=== PATIENT | male | born 1960 | race Caucasian/White ===

== ENCOUNTER 2017-10-30 15:50 | Outpatient (CLI) | payer OTHER ==
[2017-10-30 16:26] LABS: #Eosinphils 0.1 thou/uL (0.0-0.7); #Lymphocytes 1.1 thou/uL (1.20-3.40); #Monocytes 0.5 thou/uL (0.11-0.59); #Neutrophils 3.9 thou/uL (1.40-6.50); %Basophils 0.6 % (0.0-1.0); %Lymphocytes 19.3 % (21.0-51.0); %Monocytes 8.6 % (0.0-10.0); %Neutrophils 70.5 % (42.0-75.0); Hemoglobin 13.8 g/dL (14.0-18.0); Mean Corpuscular HGB CONC 34.6 g/dL (32.0-36.0); Mean Corpuscular Hemoglobin 34.2 pg (27.0-31.0); Mean Corpuscular Volume 98.8 fl (80.0-94.0); Mean Platelet Volume 6.9 fL (7.4-10.4); Platelet Count 185 thou/uL (130-400); RBC Distribution Width 11.8 % (11.5-14.5); Red Blood Cell (RBC) Count 4.02 mill/uL (4.70-6.10); White Blood Cell (WBC) Count 5.6 thou/uL (4.8-10.8)
== END 2017-10-30 15:51 | disposition home or self-care (01) ==
LOC: LABBT 15:50
PROVIDERS: ATTEND Orthopaedic Surgery Hand Surgery
DX: Z01.812 Encounter for preprocedural laboratory examination (principal); S62.635A Displaced fracture of distal phalanx of left ring finger, initial encounter for closed fracture; S62.637A Displaced fracture of distal phalanx of left little finger, initial encounter for closed fracture
CPT/HCPCS: 85025

== ENCOUNTER 2017-10-31 12:36 | Day surgery (SDC) | payer OTHER ==
[2017-10-30 15:49] VITALS: BMI 23.5
[2017-10-31] MEDS ORDERED: Clindamycin/D5W 600 mg/50 ml Premix Bag ONE (13:25)
[2017-10-31] MEDS ORDERED: Lidocaine 1% PF 5 ML VIAL ONE (14:06)
[2017-10-31] MEDS ORDERED: PROPOFOL 200 MG/20 ML VIAL ONE (14:06)
[2017-10-31] MEDS ORDERED: Ondansetron HCl/PF 4 MG/2 ML Vial ONE (14:06)
[2017-10-31] MEDS ORDERED: Midazolam HCl 2 mg/2 ml Vial ONE ×2 (14:31→16:16)
[2017-10-31] MEDS ORDERED: Fentanyl 100 MCG/2 ML VIAL ONE ×2 (15:21→16:16)
[2017-10-31] MEDS ORDERED: Sodium Chloride 0.9% 10 ML ONE (16:19)
[2017-10-31] MEDS ORDERED: Bupivacaine PF 0.5% 30 ML VIAL ONE (16:19)
[2017-10-31] MEDS ORDERED: Bacitracin Zinc Ointment 30 gm TUBE ONE (16:19)
[2017-10-31] MEDS ORDERED: Ketorolac Tromethamine 30 MG/ML VIAL ONE (18:27)
--- NOTE | 2017-10-31 18:43 | RAD ---
TWO INTRAOPERATIVE FLUOROSCOPIC IMAGES OF THE LEFT FOURTH AND FIFTH PHALANGES 10/31/17 HISTORY: Injury. ORIF left fourth and fifth phalanges. FINDINGS/IMPRESSION: There is soft tissue irregularity seen involving the medial aspect of the distal portion of the left small finger. No obvious displaced fracture is seen on this examination. Correlation with intraoperat she findings is recommended. POS: [facility]
[2017-10-31] MEDS ORDERED: HYDROcodone/Acetaminophen 5/325 mg Tablet ONE ×2 (19:21→19:22)
--- NOTE | 2017-11-01 10:06 | OP ---
DATE OF PROCEDURE: 10/31/2017 PREOPERATIVE DIAGNOSES: 1. Left ring finger wound 2 cm with nail bed laceration. 2. Left small finger 4 cm laceration with nail bed laceration. POSTOPERATIVE DIAGNOSES: 1. Left ring finger: A. A 2.0 cm laceration. 2. Nail bed laceration at the left small finger. A. A 4.0 cm laceration, complex and jagged edge. B. Nail bed laceration. C. Nail bed actual complete loss with exposed bone almost center of the nail just distal to the germinal matrix that was 3 mm x 4 mm. PROCEDURE PERFORMED: 1. At the ring finger: A. Debridement of wound. B. Closed with 2 cm laceration. C. Nail bed repair. 2. At the small finger, left: A. A 4.0 cm laceration debridement. B. A 4.0 cm laceration repair. C. Nail bed repair of 1 cm in length. D. Nail bed actual graft, over the loss had 3 x 4 mm harvested partial thickness from the nail bed d istal to the loss. TOURNIQUET TIME: 42 minutes. Procedure done under magnification. ESTIMATED BLOOD LOSS: 5 mL DEBRIDEMENT TECHNIQUE: As follows: A. Use of a [employer] blade, curet, and tenotomy scissor, Alessandro's. B. Incisional technique. C. Depth in all areas of wounds. We lifted up the nail and inspected the bone and irrigated and ramon rided it, down to that level. Indeed, there was no actual infection seen and no necrotic tissue. DESCRIPTION OF PROCEDURE: After successful general anesthesia which was a 15 mL total 0.5% Marcaine with epinephrine block at the metacarpophalangeal joint level of the ring and a small finger of the l eft hand, we prepped and draped and did timeout. We exsanguinated the limb, placed a tourniquet 250 mmHg pressure, and then we followed the laceration line from the small and ring finger to completely expose the defects. The defects were as dictated above in the findings postop and postop diagnosis. First the portion of the ring finger, we finished the debridement, removed the underlying hematoma, and performed almost 1 cm transverse nail bed laceration repair which was just 2 mm distal to the anival sarah matrix. The nail was too jagged to be recovered. We then sutured the skin flap that was almos t 2 cm laceration of the ring finger using 5-0 nylon. Then, at the ring finger again extending the laceration for 1 cm proximal, we closed the entire germinal matrix better, we debrided the jagged edges, and once we did debridement, we inspected unde rneath, could see the bone irrigated this and debrided as well using techniques listed in debridement above. Then, as we began to separate the skin, subcutaneous tissue, and nail removed and remnant of actual n ail plate, and then could see the almost J-shaped laceration, beginning transverse at the nail germin al matrix sterile matrix junction and going up the sterile matrix, but in the center portion, there w as an area where we debrided and there was exposed bone without nail bed whatsoever, this was 3 x 4 m m. We then repaired the nail bed laceration with whatever nail was present with 6-0 chromic and then harvested a 3.5 mm x 4.5 mm graft, and then held it in place using 6-0 chromic as well. Now, there was no exposed bone. We deflated the tourniquet, obtained hemostasis. We then closed the wound whic h had 3 jagged edges, a best-fit approximated them with 5-0 nylon. Bacitracin, Adaptic, 4 x 4, and K erlix were placed on both fingers loosely and there was excellent circulation. We put a wrap around the base of the fingers that went around the wrist to keep it from dislodging. This was done and hel d with [employer]. The patient left the operating room without evidence of anesthetic or operative compli cation.
== END 2017-10-31 19:55 | disposition home or self-care (01) ==
LOC: SDC 12:36
PROVIDERS: ATTEND Orthopaedic Surgery Hand Surgery
PROC: 0HQQXZZ Repair Finger Nail, External Approach (ICD-10-PCS; principal; 2017-10-31)
PROC: 0PBV0ZZ Excision of Left Finger Phalanx, Open Approach (ICD-10-PCS; principal; 2017-10-31)
PROC: 0HRGX74 Replacement of Left Hand Skin with Autologous Tissue Substitute, Partial Thickness, External Approach (ICD-10-PCS; principal; 2017-10-31)
PROC: 0HRQX7Z Replacement of Finger Nail with Autologous Tissue Substitute, External Approach (ICD-10-PCS; principal; 2017-10-31)
PROC: 0JQK0ZZ Repair Left Hand Subcutaneous Tissue and Fascia, Open Approach (ICD-10-PCS; principal; 2017-10-31)
PROC: 0HBQXZZ Excision of Finger Nail, External Approach (ICD-10-PCS; principal; 2017-10-31)
DX: S61.215A Laceration without foreign body of left ring finger without damage to nail, initial encounter (principal); S61.317A Laceration without foreign body of left little finger with damage to nail, initial encounter; I10 Essential (primary) hypertension; E78.5 Hyperlipidemia, unspecified; F17.220 Nicotine dependence, chewing tobacco, uncomplicated; W31.2XXA Contact with powered woodworking and forming machines, initial encounter; Z79.2 Long term (current) use of antibiotics; Z79.899 Other long term (current) drug therapy; Z98.890 Other specified postprocedural states
CPT/HCPCS: 76001; 85025; 96374; A4216; J1885; J2001; J2250; J2405; J2704; J3010; J3490; S0020